=== PATIENT | female | born 1945 | race Caucasian/White ===

== ENCOUNTER → 2016-11-19 | Outpatient (CLI) | payer OTHER, BC ==
--- NOTE | 2016-11-19 15:00 | MG ---
HISTORY: 71 year old female with history of right-sided breast cancer. Comparison: 11/14/2015 FINDINGS: Cc and MLO projections of the right and left breast were obtained. Scattered fibroglandular tissue is seen to be present. Previously identified post lumpectomy findings on the right are unchanged.. N o significant architectural distortion, mass or clustered microcalcifications can be observed to sug gest malignancy. IMPRESSION: Stable postlumpectomy findings on the right. ACR CATEGORY 2 - benign findings Recommendation: Yearly screening mammogram. Diagnostic CAD was utilized and reviewed. * 0 (ZERO) - ASSESSMENT INCOMPLETE; ADDITIONAL IMAGING IS NEEDED. * 1/ (ONE) - NEGATIVE. * 2/II (TWO) - BENIGN FINDINGS. * 3/III (THREE) - PROBABLY BENIGN FINDING; SHORT INTERVAL FOLLOW-UP SUGGESTED. * 4/IV (FOUR) - SUSPICIOUS ABNORMALITY; BIOPSY SHOULD BE CONSIDERED. * 5/V - HIGHLY SUSPICIOUS OF MALIGNANCY; BIOPSY SHOULD BE PERFORMED. A NEGATIVE X-RAY REPORT SHOULD NOT DELAY BIOPSY IF A DOMINANT OR CLINICALLY SUSPICIOUS MASS IS PRESENT; 4 TO 8 PERCENT OF CANCERS ARE NOT IDENTIFIED BY X-RAY. A NEG ATIVE REPORT MAY REINFORCE THE CLINICAL IMPRESSION. ADENOSIS AND DENSE BREASTS MAY OBSCURE AN UNDER LYING NEOPLASM. Reported By:
== END ==
LOC: RAD 14:04
PROVIDERS: ATTEND Specialist
DX: Z85.3 Personal history of malignant neoplasm of breast (principal)
CPT/HCPCS: 77066